=== PATIENT | female | born 1995 | race Caucasian/White ===

== ENCOUNTER 2021-06-13 20:15 | Emergency (ER) | payer MEDICAID ==
[~2021-06-13] VITALS: Ht 149.9 cm; Wt 110.4 kg
[2021-06-13 20:31] VITALS: BP 108/67
--- NOTE | 2021-06-13 20:34 | NUR ---
TO LOBBY A/W BED AMBULATORY
--- NOTE | 2021-06-13 22:47 | NUR ---
AMBULATED TO CHAIR C - Patient being evaluated by physician.
[2021-06-13 23:22] LABS: BASOPHILS % (AUTO) 0.5 % (0.0-2.0); EOSINOPHILS # (AUTO) 0.2 K/uL (0-0.4); EOSINOPHILS % (AUTO) 2.2 % (0.0-4.0); HEMATOCRIT 39.6 % (36-48); HEMOGLOBIN 13.1 g/dL (12.0-16.0); LYMPHOCYTES # (AUTO) 3.2 K/uL (2.5-16.5); LYMPHOCYTES % (AUTO) 34.3 % (20.5-51.1); MEAN CORPUSCULAR HEMOGLOBIN 29 pg (27-31); MEAN CORPUSCULAR HGB CONC 33 g/dL (33-37); MEAN CORPUSCULAR VOLUME 86.9 fL (80-94); MONOCYTES # (AUTO) 0.5 K/uL (0.8-1.0); MONOCYTES % (AUTO) 5.8 % (1.7-9.3); NEUTROPHILS # (AUTO) 5.3 K/uL (1.8-7.7); NEUTROPHILS % (AUTO) 57.2 % (42.2-75.2); PLATELET COUNT (AUTO) 248 K/uL (140-450); RED BLOOD CELL COUNT(AUTO) 4.55 MIL/uL (4.20-5.40); RED CELL DISTRIBUTION WIDTH 13.6 % (11.6-13.7); WHITE BLOOD COUNT (AUTO) 9.3 K/uL (4.8-10.8)
[2021-06-13 23:35] LABS: ALBUMIN 3.8 g/dL (3.4-5.0); ANION GAP 12.9 (8-16); CARBON DIOXIDE 29.1 mmol/L (21-32); CREATININE 0.6 mg/dL (0.6-1.3); TOTAL BILIRUBIN 0.5 mg/dL (0.0-1.0)
--- NOTE | 2021-06-14 00:44 | NUR ---
PT AMBULATED TO BED #7
[2021-06-14 02:00] LABS: APPEARANCE,URINE CLOUDY (CLEAR); BILIRUBIN,URINE 1+ (NEGATIVE); BLOOD, URINE 2+ (NEGATIVE); COLOR,URINE YELLOW (YELLOW); LEUKOCYTE ESTERASE ,URINE NEGATIVE (NEGATIVE); NITRITE, URINE NEGATIVE (NEGATIVE); UGLUCOSE NEGATIVE (NEGATIVE)
[2021-06-14 02:11] LABS: RBC,URINE 0-5 /HPF (0-5); WBC,URINE 0-5 /HPF (0-5)
[2021-06-14] MEDS ORDERED: cefTRIAXone 2,000 MG in DEXTROSE 5% 100 ML IV ONE (02:15)
[2021-06-14] MEDS ORDERED: cefTRIAXone 2,000 MG VIAL ONE (02:29)
--- NOTE | 2021-06-14 02:45 | NUR ---
PATIENT PRESENTS TO ED WITH C/O RIGHT LOWER ABDOMINAL PAIN . DENIES N/V/D; SKIN IS PINK/WARM/DRY; AAOX4 WITH EVEN AND STEADY GAIT; LUNGS CLEAR BL; HR EVEN AND REGULAR; PT DENIES ANY FEVER, CP, SOB, OR COUGH AT THIS TIME; PATIENT STATES PAIN OF 10/10 AT THIS TIME; VSS; PATIENT POSITIONED FOR COMFORT; HOB ELEVATED; BEDRAILS UP X2; BED DOWN. ER MD MADE AWARE OF PT STATUS.
[2021-06-14 04:00] VITALS: BP 114/63
[2021-06-14] MEDS ORDERED: CIPR500T4 PO (04:41)
--- NOTE | 2021-06-14 04:44 | NUR ---
DR BANEGAS AT BEDSIDE FOR RE-EXAM
--- NOTE | 2021-06-14 04:48 | NUR ---
IV D/C'D CATHETER INTACT. D/C'D HOME AMBULATORY IN NAD. ACI IN POSESSION WITH UNDERSTANDING EXPRESSED.
== END 2021-06-14 04:44 | disposition home or self-care (01) ==
LOC: MED 20:15
DX: N10 Acute pyelonephritis (principal); R51.9 Headache, unspecified; E66.01 Morbid (severe) obesity due to excess calories; Z68.42 Body mass index [BMI] 45.0-49.9, adult
CPT/HCPCS: 36415; 70450; 74176; 80053; 81001; 81025; 83036; 85025; 87040; 87086; 96365; 99285; J0696; 81002